=== PATIENT | female | born 1940 | race Caucasian/White ===

== ENCOUNTER 2016-08-26 10:31 | Emergency (ER) | payer OTHER ==
[2016-08-26 10:44] VITALS: BP 154/86; PULSE 107; RESP 16; TEMP 97.9; O2SAT 95
[2016-08-26] MEDS ORDERED: FLUCONAZOLE 150 MG TAB PO ONE (10:45)
--- NOTE | 2016-08-26 10:48 | EDPHY ---
H & P Stated Complaint: Vaginal itching x2 weeks, now with rash Time Seen by Provider: 08/26/16 10:40 HPI/ROS: CHIEF COMPLAINT: Yeast infection HISTORY OF PRESENT ILLNESS: The patient is a 76-year-old female who comes to the emergency department complaining of vaginal itching and rash that has gotten worse with cortisone cream. She states that she has had the symptoms about 2 weeks. She has had very minimal whitish discharge. No urinary complaints. No abdominal pain. No vomiting. No fever. REVIEW OF SYSTEMS: Constitutional: denies: chills, fever, recent illness, recent injury EENTM: denies: blurred vision, double vision, nose congestion Respiratory: denies: cough, shortness of breath Cardiac: denies: chest pain, irregular heart rate, lightheadedness, palpitations Gastrointestinal/Abdominal: denies: abdominal pain, diarrhea, nausea, vomiting, blood streaked stools Genitourinary: See HPI Musculoskeletal: denies: joint pain, muscle pain Skin: denies: lesions, rash, jaundice, bruising Neurological: denies: headache, numbness, paresthesia, tingling, dizziness, weakness Hematologic/Lymphatic: denies: blood clots, easy bleeding, easy bruising Immunologic/allergic: denies: HIV/AIDS, transplant EXAM: GENERAL: Well-appearing, well-nourished and in no acute distress. HEAD: Atraumatic, normocephalic. EYES: Pupils equal round and reactive to light, extraocular movements intact, sclera anicteric, conjunctiva are normal. ENT: TMs normal, nares patent, oropharynx clear without exudates. Moist mucous membranes. NECK: Normal range of motion, supple without lymphadenopathy or JVD. LUNGS: Breath sounds clear to auscultation bilaterally and equal. No wheezes rales or rhonchi. HEART: Regular rate and rhythm without murmurs, rubs or gallops. ABDOMEN: Soft, nontender, normoactive bowel sounds. No guarding, no rebound. No masses appreciated. : Patient has inflamed and excoriated labia majora. Satellite lesions. No visible discharge. BACK: No CVA tenderness, no spinal tenderness, step-offs or deformities EXTREMITIES: Normal range of motion, no pitting or edema. No clubbing or cyanosis. NEUROLOGICAL: Cranial nerves II through XII grossly intact. Normal speech, normal gait. 5/5 strength, normal movement in all extremities, normal sensation PSYCH: Normal mood, normal affect. SKIN: Warm, dry, normal turgor, no visible rashes or lesions. Source: Patient Exam Limitations: No limitations - Medical/Surgical History Hx Asthma: No Hx Chronic Respiratory Disease: No Hx Diabetes: Yes Hx Cardiac Disease: No Hx Renal Disease: No Hx Cirrhosis: No Hx Alcoholism: No Hx HIV/AIDS: No Hx Splenectomy or Spleen Trauma: No Other PMH: Med hx-type 2 diabetes. Surg-araceli - Family History Significant Family History: No pertinent family hx - Social History Smoking Status: Never smoked Alcohol Use: Sober Drug Use: None Constitutional: Initial Vital Signs Temperature (C) 36.6 C 08/26/16 10:35 Heart Rate 107 H 08/26/16 10:35 Respiratory Rate 16 08/26/16 10:35 Blood Pressure 154/86 H 08/26/16 10:35 O2 Sat (%) 95 08/26/16 10:35 O2 Delivery Mode Room Air Allergies/Adverse Reactions: Iodinated Contrast Media - Oral and Allergy (Severe, Verified 08/26/16 10:40) Hives Home Medications: Medication Instructions Recorded METFORMIN HCL 12/21/09 Clotrimazole 1% [[id number]] 7 saida VG BID PRN #1 cream 08/26/16 Fluconazole [Diflucan (*)] 150 mg PO ONCE #2 tab 08/26/16 Medical Decision Making ED Course/Re-evaluation: The patient has a yeast infection. I will start her on Diflucan and encourage antifungal ointments as well. She is happy with this plan. She denies urinary symptoms and does not wish to give urine sample. Differential Diagnosis: Partial list of the Differential diagnosis considered include but were not limited to; urinary tract infection, yeast infection and although unlikely based on the history and physical exam, I also considered sexually transmitted disease, vaginal cancer, trauma, assault. I discussed these differential diagnoses and the plan with the patient as well as the usual and expected course. The patient understands that the diagnosis is provisional and that in medicine we are not always correct and that further workup is often warranted. Usual and customary warnings were given. All of the patient's questions were answered. The patient was instructed to return to the emergency department should the symptoms at all worsen or return, otherwise to followup with the physician as we discussed. - Data Points Medications Given: Discontinued Medications Fluconazole (Diflucan) 150 mg PO ONCE ONE Stop: 08/26/16 10:46 Last Admin: 08/26/16 10:53 Dose: Not Given Departure - Departure Disposition: Home, Routine, Self-Care Clinical Impression: Candidiasis of vagina Condition: Fair Instructions: Vulvovaginal Candidiasis (ED) Referrals: Mikaela Ivy DO [Doctor of Osteopathy] - As per Instructions NONE *PRIMARY CARE P,. [Primary Care Provider] - As per Instructions Prescriptions: Clotrimazole 1% [[id number]] 7 saida VG BID PRN #1 cream PRN Reason: Rash Fluconazole [Diflucan (*)] 150 mg PO ONCE #2 tab
== END 2016-08-26 11:00 | disposition home or self-care (01) ==
LOC: CED 10:31
DX: B37.3 Candidiasis of vulva and vagina (principal); E11.9 Type 2 diabetes mellitus without complications; Z79.84 Long term (current) use of oral hypoglycemic drugs

== ENCOUNTER 2016-12-07 14:09 | Emergency (ER) | payer OTHER ==
[2016-12-07] MEDS ORDERED: CLINDAMYCIN 900 MG/DEXTROSE 50 ML IV ONE (14:48)
[2016-12-07] MEDS ORDERED: VANCOMYCIN 1 GM in NS 250 ML IV ONE (14:49)
--- NOTE | 2016-12-07 15:00 | EDPHY ---
H & P Stated Complaint: vaginal pain/discharge Source: Patient - Personal History Current Tetanus/Diphtheria Vaccine: Yes Current Tetanus Diphtheria and Acellular Pertussis (TDAP): Yes - Medical/Surgical History Hx Asthma: No Hx Chronic Respiratory Disease: No Hx Diabetes: Yes Hx Cardiac Disease: No Hx Renal Disease: No Hx Cirrhosis: No Hx Alcoholism: No Hx HIV/AIDS: No Hx Splenectomy or Spleen Trauma: No Other PMH: Med hx-type 2 diabetes. Surg-araceli - Social History Smoking Status: Never smoked Time Seen by Provider: 12/07/16 14:40 HPI/ROS: CHIEF COMPLAINT: Painful lesion on labia History by patient HISTORY OF PRESENT ILLNESS: 76-year-old woman with a history of diabetes on metformin presents complaining of pain and swelling in a lesion on her left labia majora. Patient states that she noticed a "bump "approximately 1 week ago. Subsequently that seemed to get bigger and then over the past 3 days her entire labia has swelled up into her groin area and has become very painful. She denies any nausea, vomiting abdominal pain. She has had no fever chills. There was no trauma to the area. REVIEW OF SYSTEMS: As in HPI, and all other systems reviewed and are negative (Eliza Taylor) - Physical Exam Exam: General Appearance: Alert, nontoxic, comfortable. Eyes: Pupils equal and round no pallor or injection. ENT, Mouth: Mucous membranes moist. Respiratory: Normal, effort, lungs are clear to auscultation. No wheezes, rales or rhonchi. Cardiovascular: Regular rate and rhythm. S1, S2, no murmurs, gallops or rubs appreciated Gastrointestinal: Abdomen is soft and nontender, no masses, bowel sounds normal. : Positive marked swelling redness and induration of entire left labia majora with 1.5 cm diameter circular ulcerated lesion, with tenderness and swelling tracking up above the pubis but no palpable lymphadenopathy, no pain with left hip movement Back: No CVA tenderness, no bony tenderness Neurological: Awake, alert and oriented x 3, no pronator drift, normal gait, no pronator drift Skin: Warm and dry, no rashes. Musculoskeletal: No deformities or tenderness. Extremitie:s full range of motion, no edema Psychiatric: Patient has normal affect, there is no agitation. (Erin,Eliza) Constitutional: Initial Vital Signs Temperature (C) 36.7 C 12/07/16 14:30 Heart Rate 110 H 12/07/16 14:30 Respiratory Rate 20 12/07/16 14:30 Blood Pressure 130/75 H 12/07/16 14:30 O2 Sat (%) 98 12/07/16 14:30 O2 Delivery Mode [n] Non-Rebreather Mask O2 Delivery Mode [Post Room Air Procedure 4th] O2 Delivery Mode [Post Nasal Cannula Procedure 3rd] O2 Delivery Mode [Post Nasal Cannula Procedure 2nd] O2 Delivery Mode [Post Non-Rebreather Mask Procedure 1st] O2 Delivery Mode [Procedural Non-Rebreather Mask 4th] O2 Delivery Mode [Procedural Non-Rebreather Mask 3rd] O2 Delivery Mode [Procedural Non-Rebreather Mask 2nd] O2 Delivery Mode [Procedural Non-Rebreather Mask 1st] O2 Delivery Mode Room Air O2 (L/minute) [n] 15 O2 (L/minute) [Post Procedure 2 4th] O2 (L/minute) [Post Procedure 2 3rd] O2 (L/minute) [Post Procedure 4 2nd] O2 (L/minute) [Post Procedure 10 1st] O2 (L/minute) [Procedural 4th] 15 O2 (L/minute) [Procedural 3rd] 15 O2 (L/minute) [Procedural 1st] 15 Allergies/Adverse Reactions: Iodinated Contrast- Oral and IV Dye Allergy (Severe, Verified 12/07/16 14:32) Hives Home Medications: Medication Instructions Recorded METFORMIN HCL 12/21/09 Cephalexin [Keflex] 500 mg PO TID #21 cap 12/07/16 Sulfamethox/Tmp 800/160 mg 1 tab PO BID #14 tab 12/07/16 [Bactrim Ds] Medical Decision Making Procedures: Procedure: Procedural sedation. Indication: Foot abscess I&D. A pre-sedation evaluation was completed on the patient just prior to the procedure. Patient is an appropriate candidate for procedural sedation with a normal 3-3-2 rule assessment and a Mallampati airway score of class 2. The risks of the sedation were discussed including but not limited to dysrhythmia, need for airway intervention or general anesthesia, disability, ; and verbal consent obtained. A timeout was observed and patient's identity confirmed. The patient was sedated with ketamine and propofol. The patient was monitored with continuous pulse oximetry, capnography, and teletypesetter monitor. There were no complications and no significant hypoxemia. I remained at the bedside for the sedation. The total time I spent in the procedural sedation was 25 minutes. Procedure: Abscess drainage. The patient's abscess was located on the left labia majora. I obtained verbal consent from the patient to drain the abscess who was informed about the possibility of bleeding and pain. The abscess was incised with like scalp and large amount of purulent drainage was expressed. I irrigated the wound and placed a large amount of packing. The patient tolerated the procedure well. The procedure was performed by myself. (Chano Robb) ED Course/Re-evaluation: 76-year-old woman presents with ulcerated lesion on her left labia majora with associated swelling, tenderness redness and induration concerning for infection versus malignancy. Patient is afebrile nontoxic and so I doubt Sofiya's gangrene. Labs have been ordered and are pending at time of dictation. I will start the patient empirically on vancomycin and clindamycin. We will obtain a CT scan. I will transfer care to Dr. Robb for final disposition pending results of workup. (Eliza Taylor) 3:15 p.m. I evaluated the patient and discussed CT scan with her because she has an iodine allergy. She is refusing CT scan. During my exam I was able to express chris pus from the lesion. Does appear consistent with an abscess with an ulcerated top due to previous drainage. She states that she has been using warm compresses. At this point we will I and D and treat with antibiotics and follow up in 24 hours for re-evaluation. The patient is nontoxic-appearing. She does have an elevated white blood cell count. I saw her 3 months ago for yeast infection which she states cleared up wonderfully with antifungal medication but this new lesion began about a week ago. This is also inconsistent with malignancy. 5:50 p.m. the patient is receiving her IV antibiotics. She is nauseous and retching. They are not know if that is from the antibiotics or from the procedural sedation. I will treat her with Phenergan. She had received Zofran earlier. She has received insulin and her glucose level has responded. She skipped her metformin dose today because she was worried about the infection. I instructed her to take when she gets home. 7:15 p.m. the patient is feeling very well. She is nontoxic-appearing and has stable vital signs. She remains afebrile. Her is here to pickling operator. I reiterated follow-up in 24 hours here for re-evaluation. (Chano Robb) Differential Diagnosis: Partial list of the Differential diagnosis considered include but were not limited to; abscess, malignancy, yeast infection, cellulitis and although unlikely based on the history and physical exam, I also considered sepsis, PID. I discussed these differential diagnoses and the plan with the patient as well as the usual and expected course. The patient understands that the diagnosis is provisional and that in medicine we are not always correct and that further workup is often warranted. Usual and customary warnings were given. All of the patient's questions were answered. The patient was instructed to return to the emergency department should the symptoms at all worsen or return, otherwise to followup with the physician as we discussed. ( Chano Robb) - Data Points Laboratory Results: Laboratory Results 12/07/16 14:55 12/07/16 14:55 12/07/16 12/07/16 12/07/16 17:30 14:55 14:55 WBC 15.03 10^3/uL H 10^3/uL (3.80-9.50) RBC 4.39 10^6/uL 10^6/uL (4.18-5.33) Hgb 13.2 g/dL g/dL (12.6-16.3) Hct 38.7 % % (38.0-47.0) MCV 88.2 fL fL (81.5-99.8) MCH 30.1 pg pg (27.9-34.1) MCHC 34.1 g/dL g/dL (32.4-36.7) RDW 12.6 % % (11.5-15.2) Plt Count 368 10^3/uL 10^3/uL (150-400) MPV 10.2 fL fL (8.7-11.7) Neut % (Auto) 86.7 % H % (39.3-74.2) Lymph % (Auto) 6.4 % L % (15.0-45.0) [place] % (Auto) 5.9 % % (4.5-13.0) Eos % (Auto) 0.4 % L % (0.6-7.6) Baso % (Auto) 0.1 % L % (0.3-1.7) Nucleat RBC Rel Count 0.0 % % (0.0-0.2) Absolute Neuts (auto) 13.04 10^3/uL H 10^3/uL (1.70-6.50) Absolute Lymphs (auto) 0.96 10^3/uL L 10^3/uL (1.00-3.00) Absolute Monos (auto) 0.88 10^3/uL H 10^3/uL (0.30-0.80) Absolute Eos (auto) 0.06 10^3/uL 10^3/uL (0.03-0.40) Absolute Basos (auto) 0.02 10^3/uL 10^3/uL (0.02-0.10) Absolute Nucleated RBC 0.00 10^3/uL 10^3/uL (0-0.01) Immature Gran % 0.5 % % (0.0-1.1) Immature Gran # 0.07 10^3/uL 10^3/uL (0.00-0.10) Sodium 129 mEq/L L mEq/L (134-144) Potassium 4.6 mEq/L mEq/L (3.5-5.2) Chloride 93 mEq/L L mEq/L (97-110) Carbon Dioxide 18 mEq/l L mEq/l (22-31) Anion Gap 18 mEq/L H mEq/L (8-16) BUN 16 mg/dL mg/dL (7-23) Creatinine 0.9 mg/dL mg/dL (0.6-1.0) Estimated GFR > 60 Glucose 503 mg/dL H* mg/dL (70-100) POC Glucose 386 mg/dL H mg/dL (70-100) Calcium 8.7 mg/dL mg/dL (8.5-10.4) Medications Given: Discontinued Medications Clindamycin Phosphate/Dextrose (Cleocin 900 Mg (Premix)) 50 mls @ 100 mls/hr IV EDNOW ONE PRN Reason: Protocol Stop: 12/07/16 15:17 Last Admin: 12/07/16 17:48 Dose: 50 mls Vancomycin HCl 1 gm/ Sodium (Chloride) 250 mls @ 250 mls/hr IV EDNOW ONE PRN Reason: Protocol Stop: 12/07/16 15:48 Last Admin: 12/07/16 15:30 Dose: 250 mls Sodium Chloride (Ns) 1,000 mls @ 0 mls/hr IV ONCE ONE PRN Reason: Wide Open Stop: 12/07/16 17:01 Last Admin: 12/07/16 17:00 Dose: 1,000 mls Insulin Human Regular (Humulin R) 10 unit IVP EDNOW ONE Stop: 12/07/16 16:39 Last Admin: 12/07/16 17:28 Dose: 10 unit Ketamine HCl (Ketamine) 60 mg IVP EDNOW ONE Stop: 12/07/16 16:41 Last Admin: 12/07/16 15:58 Dose: 60 mg Ondansetron HCl (Zofran Odt 4 Mg Prepack#2) 1 btl TAKEHOME EDNOW ONE Stop: 12/07/16 19:39 Last Admin: 12/07/16 19:40 Dose: 1 btl Promethazine HCl (Phenergan) 12.5 mg IVP EDNOW ONE Stop: 12/07/16 17:55 Last Admin: 12/07/16 18:12 Dose: Not Given Propofol (Diprivan) 60 mg IVP EDNOW ONE Stop: 12/07/16 16:41 Last Admin: 12/07/16 15:58 Dose: 60 mg Point of Care Test Results: 12/07/16 17:30 POC Glucose 386 H Departure - Departure Disposition: Home, Routine, Self-Care Clinical Impression: Abscess Condition: Fair Instructions: Abscess (ED) Referrals: NONE *PRIMARY CARE P,. [Primary Care Provider] - As per Instructions ED,PHYSICIAN ONDUTY [Medical Doctor] - 1 day without fail Prescriptions: Cephalexin [Keflex] 500 mg PO TID #21 cap Sulfamethox/Tmp 800/160 mg [Bactrim Ds] 1 tab PO BID #14 tab
[2016-12-07 15:01] LABS: % IMMATURE GRANULYOCYTES 0.5 % (0.0-1.1); ABSOLUTE IMMATURE GRANULOCYTES 0.07 10^3/uL (0.00-0.10); ADD DIFF? NO; ADD MORPH? NO; ADD SCAN? NO; ATYPICAL LYMPHOCYTE FLAG 10 (0-99); FRAGMENT RBC FLAG 0 (0-99); HEMATOCRIT 38.7 % (38.0-47.0); HEMOGLOBIN 13.2 g/dL (12.6-16.3); LEFT SHIFT FLG 30 (0-99); LIPEMIA HEMOLYSIS FLAG 90 (0-99); MEAN CELL HEMOGLOBIN 30.1 pg (27.9-34.1); MEAN CELL HEMOGLOBIN CONCENTR. 34.1 g/dL (32.4-36.7); MEAN CELL VOLUME 88.2 fL (81.5-99.8); MEAN PLATELET VOLUME 10.2 fL (8.7-11.7); PLATELET CLUMPS FLAG 0 (0-99); PLATELET COUNT 368 10^3/uL (150-400); RED BLOOD CELL COUNT 4.39 10^6/uL (4.18-5.33); RED CELL DISTRIBUTION WIDTH 12.6 % (11.5-15.2)
[2016-12-07] MEDS ORDERED: IOPAMIDOL (ISOVUE-300) 100 ML BTL ONE (15:08)
[2016-12-07 15:13] LABS: CHLORIDE 93 mEq/L (97-110); POTASSIUM 4.6 mEq/L (3.5-5.2)
[2016-12-07 15:14] LABS: ANION GAP 18 mEq/L (8-16); CALCIUM 8.7 mg/dL (8.5-10.4); CARBON DIOXIDE 18 mEq/l (22-31); CREATININE 0.9 mg/dL (0.6-1.0); GLOMERULAR FILTRATION RATE > 60
[2016-12-07 15:16] LABS: SODIUM 129 mEq/L (134-144)
[2016-12-07 15:27] LABS: GLUCOSE 503 mg/dL (70-100)
[2016-12-07] MEDS ORDERED: KETAMINE 500 MG/10 ML VIAL ONE (15:43)
[2016-12-07] MEDS ORDERED: PROPOFOL 200 MG/20 ML VIAL ONE (15:44)
[2016-12-07] MEDS ORDERED: INSULIN REGULAR HUMAN 100 UNIT/ML IVP ONE (16:38)
[2016-12-07] MEDS ORDERED: KETAMINE 100 MG/10 ML SYR IVP ONE (16:40)
[2016-12-07] MEDS ORDERED: PROPOFOL 200 MG/20 ML VIAL IVP ONE (16:40)
[2016-12-07] MEDS ORDERED: NS 1,000 ML IV ONE (17:00)
[2016-12-07] MEDS ORDERED: ONDANSETRON 4 MG/2 ML VIAL ONE (17:15)
[2016-12-07] MEDS ORDERED: PROMETHAZINE HCL 25 MG/ML INJ IVP ONE (17:54)
[2016-12-07 19:00] VITALS: RESP 18
[2016-12-07] MEDS ORDERED: ONDANSETRON 4MG PREPACK#2 BTL TAKEHOME ONE (19:38)
[2016-12-07 19:52] VITALS: BP 136/66; PULSE 96; TEMP 99.1; O2SAT 93
== END 2016-12-07 19:35 | disposition home or self-care (01) ==
LOC: CED 14:09
PROC: 0U9MXZZ Drainage of Vulva, External Approach (ICD-10-PCS; principal; 2016-12-07)
DX: N76.4 Abscess of vulva (principal); E11.9 Type 2 diabetes mellitus without complications; Z79.84 Long term (current) use of oral hypoglycemic drugs
CPT/HCPCS: 56405; 96361; 96365; 96367; 96375; 99152; 99153; 99285; J1815; J2405; J2704; J3370; Q9967; 80048-PO; 82947-QW; 85025-PO

== ENCOUNTER 2016-12-08 17:10 | Emergency (ER) | payer OTHER ==
[2016-12-08] MEDS ORDERED: IBUPROFEN 600 MG TAB PO ONE (18:04)
[2016-12-08] MEDS ORDERED: ACETAMINOPHEN 500 MG TAB PO ONE (18:04)
[2016-12-08] MEDS ORDERED: LET GEL TOPICAL 1 EA SYR TP ONE ×2 (18:47)
--- NOTE | 2016-12-08 19:12 | EDPHY ---
H & P Time Seen by Provider: 12/08/16 17:26 HPI/ROS: This patient was seen yesterday by Dr. Robb with left labia majora abscess I indeed started on Keflex and Bactrim with wound culture sent revealing mixed vaginal modesta on preliminary culture. She was instructed to come back for a recheck today. He reports compliance with her antibiotics and reports decreased pain to the affected area compared to yesterday. Current level of pain is moderate. Pain does worsen with walking. No other exacerbating factors. She denies any new symptoms. She was brought in by her by private vehicle for recheck today. She has not noticed significant drainage from the area since yesterday. ROS: Constitutional: No fevers or chills. No significant fatigue GI: No nausea vomiting Integumentary: No new skin lesions. 5 point ROS is otherwise negative. Smoking Status: Never smoked Physical Exam: Physical Exam Vital signs are normal. General: No acute distress Eyes: Pupils equal and react to light. Extraocular motions are intact. Lungs: No respiratory distress. Cardiac: Brisk capillary refill is intact throughout. Pulses are 2+ and symmetric in the affected extremity. Skin: No rash or pallor. : Examination with nurse Lisa patient has mild swelling to the left labia majora with erythema slight warmth to touch and a 1.3 cm wound with packing material protruding. Right labia majora is normal appearing are no other skin lesions or findings. Neuro: Alert and oriented x3 with no sensorimotor deficits. Constitutional: Initial Vital Signs Temperature (C) 36.5 C 12/08/16 17:19 Heart Rate 102 H 12/08/16 17:19 Respiratory Rate 18 12/08/16 17:19 Blood Pressure 138/71 H 12/08/16 17:19 O2 Sat (%) 98 12/08/16 17:19 O2 Delivery Mode Room Air Allergies/Adverse Reactions: Iodinated Contrast- Oral and IV Dye Allergy (Severe, Verified 12/08/16 17:22) Hives Home Medications: Medication Instructions Recorded METFORMIN HCL 12/21/09 Cephalexin [Keflex] 500 mg PO TID #21 cap 12/07/16 Sulfamethox/Tmp 800/160 mg 1 tab PO BID #14 tab 12/07/16 [Bactrim Ds] Cephalexin [Keflex (*)] 500 mg PO TID #9 cap 12/08/16 Sulfamethox/Tmp 800/160 mg 1 tab PO BID #6 tab 12/08/16 [Bactrim Ds] traMADol [Ultram 50 mg (*)] 50 - 100 mg PO Q4 PRN #12 tab 12/08/16 MDM/Departure - MDM Procedures: I removed the packing in massage the area with release of small amount of purulent material. Patient tolerated this well and after topical lidocaine solution I scrubbed the area with chlorhexidine and repacked with quarter-inch gauze. Dressing was applied. I counseled the patient regarding wound care Discussion: Patient with abscess/cellulitis appears to be improving clinically. She does not appear toxic early currently does not have septic physiology. She is tolerating good p. o. intake and increased safe for discharge home continue her oral antibiotics with close follow up with primary care physician for recheck in 2 days and plan to pull the packing at that time. She understands need to return to the emergency department she has any significant worsening of her symptoms despite the treatment plan. Medications Given: Discontinued Medications Acetaminophen (Tylenol) 1,000 mg PO EDNOW ONE Stop: 12/08/16 18:05 Last Admin: 12/08/16 18:09 Dose: 1,000 mg Ibuprofen (Motrin) 600 mg PO EDNOW ONE Stop: 12/08/16 18:05 Last Admin: 12/08/16 18:10 Dose: 600 mg Tetracaine/Epinephrine/Lidocaine (Let Gel Topical) 1 ea TP EDNOW ONE Stop: 12/08/16 18:48 Last Admin: 12/08/16 18:50 Dose: 1 ea - Depart Disposition: Home, Routine, Self-Care Clinical Impression: Abscess re-check Condition: Good Instructions: Abscess (ED) Additional Instructions: Diagnosis: Recheck abscess Plan: Ibuprofen and Tylenol for pain Tramadol in addition if he can't sleep due to pain No driving or alcohol and tramadol Continue antibiotics but pickup additional 3 days worth of each 1 so that you take a total of 10 days of antibiotics Soak in no warm back as an gently massage the area over the next few days. Pulled the packing out in 2 days. Complete antibiotic course Apply warm packs or hop asked the area to 3 times daily until symptoms resolve Return for any significant worsening despite the treatment plan Call the physician listed below to arrange follow-up appointment to establish primary care physician Prescriptions: Cephalexin [Keflex (*)] 500 mg PO TID #9 cap Sulfamethox/Tmp 800/160 mg [Bactrim Ds] 1 tab PO BID #6 tab traMADol [Ultram 50 mg (*)] 50 - 100 mg PO Q4 PRN #12 tab PRN Reason: breakthrough pain Referrals: NONE *PRIMARY CARE P,. [Primary Care Provider] - As per Instructions Florentin Roth DO [Doctor of Osteopathy] - As per Instructions
[2016-12-08 19:32] VITALS: BP 121/61; PULSE 93; RESP 16; TEMP 98.4; O2SAT 94
== END 2016-12-08 19:55 | disposition home or self-care (01) ==
LOC: CED 17:10
DX: Z48.01 Encounter for change or removal of surgical wound dressing (principal)